=== PATIENT | male | born 2000 | race Caucasian/White ===

== ENCOUNTER 2025-05-09 11:41 | Emergency (ER) | payer SELFPAY ==
[2025-05-09 11:45] VITALS: BP 123/74; PULSE 96; RESP 18; TEMP 36.8; O2SAT 99
--- OUTSIDE RECORDS SUMMARY | 2025-05-09 11:49 | XMS_ITS | Clinical Summary ---
Author Organization [facility] Address [address] [place] [address] Phone Care Team Providers Care Reweaver Name Role Phone Provider, None Primary Care Provider Unavailabl e Allergies No known active allergies Medications propranolol (INDERAL) 10 MG TabletIndicatio ns:Anxiety Take 1 Tablet by mouth 3 times daily. As needed for anxiety 90 Tablet 3 2 Active ketorolac (TORADOL) 10 MG Tablet Take 1 Tablet by mouth every 6 hours as needed for Moderate or more severe pain. 20 Tablet 3 Active Additional Information Patient not taking.Reported on 09/20/2024 metoclopramide (REGLAN) 10 MG Tablet Take 1 Tablet by mouth 4 times daily as needed for Nausea - 1st line. 10 Tablet 3 Active Active Problems No known active problems Immunizations Immunization Administration Dates Next Due DTAP VACCINE 07/25/2006, 3,2002,09/01,2002 HEP B/HIB Combined Vaccine 08/03/2003,2002 Hepatitis A Vaccine, Pediatric/adolescent, 2 Dose Schedule 04/16/2018 Hepatitis A, Pediatric, Unsp ecified Formulation 03/15/2007,07/25/2006 Hepatitis B Vaccine, Pediatric/adolescent 2002,2002 Hib Vaccine,unspecified Formulation 05/12/2003,0 2002 Human Papillomavirus (HPV) 9 -valent Vaccine 04/16/2018,03/16/2016 Human Papillomavirus Vaccine (HPV), quadrivalent 02/22/2015,05/11/2014 Inactivated Polio Vaccine 07/25/2006,,2002,06/27 Influenza Vaccine, Quadrivalent, PF 04/29/2019 MMR Vaccine 05/12/2003 MMRV 07/25/2006 Meningococcal MCV4O 06/24/2020 Meningococcal Vaccine 05/11/2014 Pneumococcal Vaccine Peds - 7 Valent 03/2003,05/12/2003,2002,06/27 TDAP Vaccine 05/11/2014 Varicella Vaccine Live 05/12/2003 Social History Tobacco Use Types Packs/Day Years Used Date Smoking Tobacco: Never Smokeless Tobacco: Never Tobacco Cessation:Counseling Given: Not Answered Alcohol Use Standard Drinks/Week Comments No 0 (1 standard drink = 0.6 oz pur e alcohol) PHQ-2 Answer Date Recorded Total Score - Questions 1-9 15 12/2021 Sexually Active Control Partners Comments Yes Sex and Gender Information Value Date Recorded Sex Assigned at Not on file 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 Gender Identity Not on file Sexual Orientation Not on file Last Filed Vital Signs Vital Sign Reading Time Taken Comments Blood Pressure 117/81 01/01/2025 1:45 AM CDT Pulse 66 01/01/2025 1:45 AM CDT Temperature 36.6 C (97.9 F) 01/01/2025 1:45 AM CDT Respiratory Rate 17 01/01/2025 1:45 AM CDT Oxygen Saturation 97% 01/01/2025 1:45 AM CDT Inhaled Oxygen Concentration - - Weight 74.8 kg (165 lb) 01/01/2025 1:45 AM CDT Height 185.4 cm (6' 1) 01/01/2025 1:45 AM CDT Body Mass Index 21.77 01/01/2025 1:45 AM CDT Plan of Treatment Health Maintenance Due Date Last Done Comments Hepatitis C Virus (HCV) Screening 2002 DTaP/Tdap/Td Immunization (7 - Td or Tdap) 05/11/2024 05/11/2014, 07/25/2006, 08/03/2003, Additional history exists Influenza Immunization (#1) 2025 04/29/2019 SARS-COV-2 Immunization ( season) 2025 Respiratory Syncytial Virus (RSV) Immunization (Adult) ( - -dose 75+ series) 2077 Hepatitis B Immunization Completed 003, 2002, 2002, Additional history exists Pneumococcal Immunization Combined Aged Out 08/03/2003, 05/12/2003, 2002, Additional history exists No longer eligible based on patient's age to complete this topic Measles Mumps Rubella (MMR) Immunization Discontinued 07/25/2006, 05/12/2003 Polio (IPV) Immunization Discontinued 006, 2002, 2002, Additional history exists Varicella Immunization Discontinued 07/25/2006, 2002 Hepatitis A Immunization Discontinued 018, 03/15/2007, 07/25/2006 Human Papillomavirus (HPV) Immunization Completed 04/16/2018, 03/16/2016, 02/22/2015, Additional history exists Meningococcal Immunization (ACWY) Completed 06/24/2020, 05/11/2014 Meningococcal B Immunization Discontinued Rotavirus Immunization Aged Out No lo nger eligible based on patient's age to complete this topic Care Teams Reweaver Relationship Specialty Start Date End Date Provider, None [place] PCP - General 01/01/25
--- OUTSIDE RECORDS SUMMARY | 2025-05-09 11:49 | XMS_ITS | Clinical Summary ---
Author Organization [facility] Address [address] [place] [address] Care Team Providers Care Race Board Attendant Name Role Phone Miscellaneous, Not In File Primary Care Provider Unavailable Allergies No known active allergies Medications No known medications Active Problems Problem Noted Date Diagnosed Date Hypermobile joint syndrome of shoulder 7 Encounters Date Type Department Care Team Description 04/11/2025 4:19 PM CDT - 04/11/2025 7:08 PM CDT Emergency [facility] Emergency Department [address] [place] [id number] Heat exhaustion, initial encounter (Primary Dx); Vomiting, unspecified vomiting type, unspecified whether nausea present Discharge Disposition: Discharge to home or self care from Last 3 Months Social History Tobacco Use Types Packs/Day Years Used Date Smoking Tobacco: Never Smokeless Tobacco: Never Personal Safety Answer Date Recorded Have you ever been in or are you currently in a harmful physical or emotional relationship or is someone making you feel afraid or unsafe? 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 Gender Identity Not on file Sexual Orientation Not on file Obstetrics History Last Filed Vital Signs Vital Sign Reading Time Taken Comments Blood Pressure 129/66 04/11/2025 6:35 PM CDT Pulse 80 04/11/2025 6:35 PM CDT Temperature 36.3 C (97.3 F) 04/11/2025 4:25 PM CDT Respiratory Rate 17 04/11/2025 6:35 PM CDT Oxygen Saturation 100% 04/11/2025 6:35 PM CDT Inhaled Oxygen Concentration - - Weight 72.6 kg (160 lb) 04/11/2025 4:25 PM CDT Height 185.4 cm (6' 1) 04/11/2025 4:25 PM CDT Body Mass Index 21.11 04/11/2025 4:25 PM CDT Plan of Treatment Health Maintenance Due Date Last Done Comments Depression Screening 2002 Hepatitis C Screening 2002 Meningococcal B Vaccine (1 o f 2 - Standard) 2018 Regular Well Visit/Exam 18-64 2020 DTaP/Tdap/Td Vaccine (7 - Td or Tdap) 05/11/2024 05/11/2014, 07/25/2006, 08/03/2003, Additional history exists Influenza Vaccine (#1) 2025 04/29/2019 Hepatitis B Screening Completed 08/03/2003 , 08/03/2003, 2002, Additional history exists Pneumococcal vaccine <65 Completed 003, 05/12/2003, 2002, Additional history exists Varicella Vaccines Completed 07/25/2006, 05/12/2003 HPV Vaccines Completed 04/16/2018, 02/25, 02/22/2015, Additional history exists Procedures Procedure Name Priority Date/Time Associated Diagnosis Comments URINALYSIS, MICROSCOPIC ONLY STAT 04/11/2025 5:33 PM CDT URINALYSIS AND REFLEX TO MICROSCOPIC AND CULTURE STAT 04/11/2025 5:33 PM CDT EGFR STAT 04/11/2025 4:29 PM CDT DIFFERENTIAL AUTO STAT 04/11/2025 4:2 9 PM CDT COMPREHENSIVE METABOLIC PANEL STAT 04/11/2025 4:29 PM CDT CBC WITH AUTO DIFFERENTIAL STAT 04/11/2025 4:29 PM CDT ECG 12-LEAD Routine 04/11/2025 4:26 PM CDT from Last 3 Months Results * (ABNORMAL) Urinalysis reflex to microscopic and culture Urine (04/11/2025 5:33 PM CDT) Color, ur Yellow Yellow Clarity, ur Turbid(A) Clear [facility] Specific gravity, ur >1.030(H) 1.003 - 1.030 [facility] pH, urine 6.0 [facility] Comment: Interpretive Data U rine pH is affected by diet, medications, systemic acid-base disturbances, and renal tubular function. pH may affect urinary stone formation. For example, urine pH below 6.0 may help reduce the tendency for calcium phosphate stones and pH greater than 6.0 may reduce the tendency for uric acid stone formation. Source: [facility] Current Interpretive Data was last revised on 2017 Protein, ur ql 1+(A) Negative [facility] Glucose, ur ql Negative Negative [facility] Ketones, ur 2+(A) Negative [facility] Bilirubin, ur Negative Negative [facility] Blood, ur Negative Negative [facility] Urobilinogen, ur 2.0(A) <2.0 mg/dL [facility] Nitrite, ur Negative Negative [facility] Leukocyte esterase, ur Negative Negative [facility] UA reflex comment Reflex to microscopic UA will be performed. [facility] Urine 04/11/2025 5:33 PM CDT 04/11/2025 5:35 PM CDT Hung Shafer MD LAB MICROBIOLOGY - [place] ORDERABLES Final Result [facility] [address] [facility] Department [place] [address] * (ABNORMAL) Urinalysis, microscopic only (04/11/2025 5:33 PM CDT) WBC, ur 6-10(A) 0 - 5 /HPF RBC, ur 0-2 0 - 2 /HPF [facility] Bacteria, ur Trace(A) [facility] Mucous, ur Present(A) [facility] Hyaline casts, ur 6-10 0 - 10 /LPF [facility] Culture Reflex Comment Reflex conditions for urine culture (WBC >10) not met. [facility] Urine 04/11/2025 5:33 PM CDT 04/11/2025 5:35 PM CDT Hung Shafer MD LAB URINE ORDERABLES Final Result Performing Organization Address City/[facility] Co de Phone Number JOSE E [address] Department [place] [address] * eGFR (04/11/2025 4:29 PM CDT) eGFR 81 >=60 mL/min/1. 73 m2 Comment: Interpretive Data Reference Interval Normal >/= 90 mL/min/1.73m2 Mildly decreased* 60 - 89 mL/min/1.73m2 Mildly to moderately decreased 45 - 59 mL/min/1.73m2 Moderately to severely decreased 30 - 44 mL/min/1.73m2 Severely decreased 15 - 29 mL/min/1.73m2 Kidney Failure < 15 mL/min/1.73m2 *Relative to young adult level Estimated glomerular filtration rate is determined by the 2020 CKD-EPI equation recommended by the National Kidney Foundation (A Unifying Approach to GFR Estimation: Recommendations of the NKF-ASK Task Force on Reassessing the Inclusion of Race in Diagnosing Kidney Disease, JASN 2020). The CKD-EPI equation should not be used for patients with unstable renal function and has not been validated in children and those over 70. Current interpretive data was last reviewed 2021. Blood 04/11/2025 4:29 PM CDT 04/11/2025 4:34 PM CDT Hung Shafer MD LAB BLOOD ORDERABLES Final Result Performing Organization Address City/[facility]/ZIP Co de Phone Number [address] Department [place] [address] * (ABNORMAL) Differential, auto (04/11/2025 4:29 PM CDT) Neutrophil abs 6.19 1.50 - 6.50 K/cumm Imm gran abs 0.04 0.00 - 0.10 K/cumm [facility] Lymphocyte abs 1.39 0.80 - 3.30 K/cumm [facility] Monocyte abs 0.90(H) 0.20 - 0.80 K/cumm [facility] Eosinophil abs 0.03 0.00 - 0.50 K/cumm [facility] Basophil abs 0.03 0.00 - 0.10 K/cumm [facility] Neutrophil pct 72.2 % [facility] Comment: Interpretive Data Percent cell count reference ranges are not reported, since discordance with absolute values may lead to misinterpretation of CBC data. Current Interpretive Data was last revised on 2017. Imm gran pct 0.5 % [facility] Comment: Interpretive Data Percent cell count reference ranges are not reported, since discordance with absolute values may lead to misinterpretation of CBC data. Current Interpretive Data was last revised on 2017. Lymphocyte pct 16.2 % [facility] Comment: Interpretive Data Percent cell count reference ranges are not reported, since discordance with absolute values may lead to misinterpretation of CBC data. Current Interpretive Data was last revised on 2017. Monocyte pct 10.5 % [facility] Comment: Interpretive Data Percent cell count reference ranges are not reported, since discordance with absolute values may lead to misinterpretation of CBC data. Current Interpretive Data was last revised on 2017. Eosinophil pct 0.3 % [facility] Comment: Interpretive Data Percent cell count reference ranges are not reported, since discordance with absolute values may lead to misinterpretation of CBC data. Current Interpretive Data was last revised on 2017. Basophil pct 0.3 % [facility] Comment: Interpretive Data Percent cell count reference ranges are not reported, since discordance with absolute values may lead to misinterpretation of CBC data. Current Interpretive Data was last revised on 2017. Blood 04/11/2025 4:29 PM CDT 04/11/2025 4:34 PM CDT us Hung Shafer MD LAB BLOOD ORDERABLES Final Result [address] Department [place] [address] * CBC with auto differential (04/11/2025 4:29 PM CDT) [facility] WBC 8.58 3.80 - 9.90 K/cumm Hgb 13.9 13.0 - 17.5 g/dL [facility] Hct 42.0 38.9 - 50.3 % [facility] Plt 216 150 - 400 K/cumm [facility] MPV 10.1 9.1 - 12.3 fL [facility] RBC 4.83 4.30 - 5.80 M/cumm [facility] MCV 87.0 81.3 - 96.4 fL [facility] MCH 28.8 27.1 - 33.3 pg [facility] MCHC 33.1 32.3 - 35.7 g/dL [facility] RDW CV 13.5 11.1 - 14.9 % [facility] RDW SD 43.3 35.7 - 48.1 fL [facility] NRBC abs 0.00 0.00 - 0.01 K/cumm [facility] Blood 04/11/2025 4:29 PM CDT 04/11/2025 4:34 PM CDT us Hung Shafer MD LAB BLOOD ORDERABLES Final Result [address] Department [place] [address] * (ABNORMAL) Comprehensive metabolic panel (04/11/2025 4:29 PM CDT) [facility] Sodium 136 135 - 145 mmol/L Potassium, pl 3.8 3.3 - 4.9 mmol/L [facility] Chloride 95(L) 97 - 110 mmol/L [facility] CO2 25 22 - 32 mmol/L [facility] Anion gap 16(H) 2 - 15 mmol/L [facility] BUN 20 6 - 25 mg/dL [facility] Creatinine 1.28 0.80 - 1.30 mg/dL [facility] Glucose 122 70 - 199 mg/dL [facility] Comment: Interpretive Data Fasting glucose >/= 126 mg/dl is diagnostic for diabetes. Fasting is defined as no caloric intake for at least 8 hours. Fasting glucose between 100 mg/dl to 125 mg/dl is diagnostic of prediabetes. In a patient with classic symptoms of hyperglycemia or hyperglycemic crisis, a random glucose >/= 200 mg/dl is diagnostic for diabetes. In the absence of unequivocal hyperglycemia, results should be confirmed by repeat testing. The classification and Diagnosis of Diabetes Diabetes Care 2021; 46: S19-S40. Current interpretive data was last revised 2022. Calcium 10.0 8.5 - 10.3 mg/dL [facility] Bilirubin, total 1.2 0.1 - 1.2 mg/dL [facility] Protein, pl 8.2 6.5 - 8.5 g/dL [facility] Albumin 4.8 3.5 - 5.0 g/dL [facility] Alk phos 80 40 - 130 Units/L [facility] ALT 20 7 - 55 Units/L [facility] AST 21 10 - 50 Units/L [facility] Blood 04/11/2025 4:29 PM CDT 04/11/2025 4:34 PM CDT us Hung Shafer MD LAB BLOOD ORDERABLES Final Result [address] Department [place] [address] * ECG 12 lead (04/11/2025 4:26 PM CDT) 04/11/2025 4:26 PM CDT Narrative [facility] - 04/12/2025 2:19 PM CDT Vent Rate: 81 bpm RR Interval: 736 msec CA Interval: 137 msec QRS Duration: 102 msec QT Interval: 374 msec QTC Interval: 411 msec P-R-T [place]: -6 - 82 - 50 degrees IMPRESSION: SINUS RHYTHM WITH SINUS ARRHYTHMIA NORMAL ECG Electronically Signed By: Preston Monterroso, , FACC us uHng Shafer MD ECG ORDERABLES Edite d Result - Final [facility] from Last 3 Months Care Teams Race Board Attendant Relationship Specialty Start Date End Date Miscellaneous, Not In File PCP - General 04/11/25
--- NOTE | 2025-05-09 13:52 | ED_ITS ---
HPI - Nausea/Vomiting/Diarrhea General Chief complaint: Upper Respiratory Infection Stated complaint: flu like symptoms, covid/strep testing Time Seen by Provider: 05/09/25 11:57 Source: patient and RN notes reviewed Mode of arrival: ambulatory Limitations: no limitations History of Present Illness HPI Narrative: Patient presents today complaining of nausea and vomiting since yesterday with mild headache. He vomited 5 times yesterday and once today, last 3 hours prior to arrival. He has eaten chicken and tea today and kept it down, but does have some residual nausea. He took some ibuprofen yesterday for headache with some improvement. Denies fever, abdominal pain, diarrhea, cough, nasal congestion. Related Data Home Medications ?Medication ?Instructions ?Recorded ?Confirmed ?Last Taken ?Type No Home Medications 05/09/25 05/09/25 U nknown History Allergies Allergy/AdvReac Type Severity Reaction Status Date / Time No Known Allergies Allergy Verified 05/09/25 11:58 PMFSH Comments At time of signature, I have reviewed and agree with nursing past medical, surgical, social and family history unless otherwise noted. Please see nursing chart for further information. There is no relevant family history pertinent to the presenting complaint Exam Narrative: GENERAL: Well-appearing, well-nourished, and in no acute distress. HEAD: Normocephalic, atraumatic. EYES: EOMI. No redness or drainage. Conjunctivae normal. ENT: Mucous membranes pink and moist. Nares clear. No rhinorrhea. Throat normal. Uvula midline. NECK: Normal AROM. Supple. No lymphadenopathy. CHEST: No respiratory distress. Clear to auscultation. HEART: Regular rate and rhythm. No murmur appreciated. ABDOMEN: Soft, , nondistended, normal active bowel sounds.+ mild generalized abdominal tenderness without rebound or guarding. EXTREMITIES: Normal range of motion. No edema. SKIN: Warm, dry, no rash. Capillary refill normal. Normal skin turgor. NEURO: No focal deficits. Alert and oriented x3. Gait steady. PSYCH: Normal affect. No signs of depression or anxiety. Course Course Level of Care: Express Care Visit Vital Signs Vital signs: Vital Signs Temperature 98.3 F 05/09/25 11:45 Pulse Rate 96 05/09/25 11:45 Respiratory Rate 18 05/09/25 11:45 Blood Pressure 123/74 05/09/25 11:45 Pulse Oximetry 99 05/09/25 11:45 Oxygen Delivery Room Air 05/09/25 11:45 Temperature 98.3 F 05/09/25 11:45 Pulse Rate 96 05/09/25 11:45 Respiratory Rate 18 05/09/25 11:45 Blood Pressure 123/74 05/09/25 11:45 Pulse Oximetry 99 05/09/25 11:45 Oxygen Delivery Room Air 05/09/25 11:45 Reviewed MDM - Nausea/Vomiting/Diarrhea MDM Narrative Medical decision making narrative: 25-year-old male patient presents today with nausea vomiting since yesterday with headache. Last episode of vomiting was 3 hours prior to arrival. Patient has been able to keep down food and fluids today. Exam shows some mild generalized abdominal tenderness without rebound or guarding. Mucous membranes pink and moist. Symptoms likely viral in etiology. Patient declined prescription for Zofran. Patient able to orally hydrate, which is reassuring. Recommend bland foods today and advancing as tolerated. Work note provided. Vital signs stable. Differential Diagnosis Differential diagnosis: Likely food poisoning, gastroenteritis, dehydration and other (Viral syndrome) Critical Care Time Critical Care Time Critical Care Time: No Discharge Plan Discharge Clinical Impression: Nausea & vomiting Qualifiers: Vomiting type: unspecified Qualified Code(s): R11.2 - Nausea with vomiting, unspecified Patient Disposition: Home Condition: Stable Instructions: Dehydration (DC), Acute Nausea and Vomiting (DC) Additional Instructions: Continue to stay hydrated with water and electrolyte fluids. If you want to eat, stay with bland foods that are easy to digest such as mashed potatoes, rice etc.. Tomorrow if your still not vomiting, advanced your diet as tolerated. Rest. Follow-up With your PCP next week if symptoms persist. Go to the ER if symptoms worsen. Your blood pressure was elevated above 120/80 today at Urgent Care. This puts you above the threshold for follow up. Please schedule a followup visit with your personal physician as soon as possible, for further evaluation and treatment. Even blood pressure exceeding 120/80 may indicate pre-hypertension. Patient Language: Tajik Prescriptions: No Action No Home Medications Follow-up/Referrals: PHYSICIAN,CLAIM PROCESSING SPECIALIST [Primary Care Provider, Internal Medicine] Stand Alone Forms: Work/School Release IP Time of Disposition: 12:12
== END 2025-05-09 12:15 | disposition home or self-care (01) ==
PROVIDERS: Emergency Provider Nurse Practitioner
DX: R11.2 Nausea with vomiting, unspecified (principal)
CPT/HCPCS: 99202; G0463